=== PATIENT | female | born 1965 | race Caucasian/White ===

== ENCOUNTER 2018-11-07 21:12 | Observation (INO) | payer MEDICAID, OTHER ==
[~2018-11-07] VITALS: Ht 167.6 cm; Wt 112.2 kg
[~2018-11-07 21:12] MED LIST: ASPI-831 PO; LISI-523 PO
[2018-11-07] MEDS ORDERED: NITROGLYCERIN 2% 1 GM OINT PKT TD STA (21:13)
[2018-11-07] MEDS ORDERED: NITROGLYCERIN (SL) 0.4 MG TAB SL PRN ×2 (21:30→23:00)
[2018-11-07] MEDS ORDERED: ONDANSETRON 4 MG INJ IV PRN ×2 (22:30→23:00)
[2018-11-07] MEDS: ACETAMINOPHEN 325 MG TAB PO PRN (22:35)
[2018-11-07] MEDS ORDERED: morphine 2 MG INJ IV PRN (23:00)
[2018-11-07] MEDS ORDERED: BISACODYL (EC) 5 MG TAB PO PRN (23:00)
[2018-11-07] MEDS ORDERED: ACETAMINOPHEN 325 MG TAB PO PRN (23:00)
[2018-11-07] MEDS ORDERED: DOCUSATE SODIUM 100 MG CAP PO PRN (23:00)
[2018-11-07] MEDS ORDERED: NACL 0.9% 3 ML SYG IV SCH (23:00)
[2018-11-08 01:51] VITALS: Ht 167.6 cm; Wt 112.2 kg
[2018-11-08 02:23] VITALS: BP 128/77; PULSE 62; RESP 16
[2018-11-08 04:00] VITALS: BP 98/57; RESP 14
[2018-11-08] MEDS ORDERED: hydrALAzine 20 MG INJ IV PRN (07:00)
[2018-11-08 07:19] VITALS: BP 132/84; PULSE 63; RESP 16
[2018-11-08] MEDS: ACETAMINOPHEN 325 MG TAB PO PRN (07:47)
[2018-11-08] MEDS: ASPIRIN 81 MG TAB PO SCH (08:10)
[2018-11-08 11:07] VITALS: BP 125/85; PULSE 62; RESP 16
[2018-11-08] MEDS ORDERED: ACET/BUTAL/CAFF TAB PO PRN (15:30)
[2018-11-08 16:00] VITALS: BP 126/76; PULSE 60; RESP 16
[2018-11-08 19:53] VITALS: BP 123/73; PULSE 66; RESP 17
[2018-11-09] VITALS: BP 116/66; PULSE 70; RESP 16
[2018-11-09 02:00] VITALS: BP 130/67; PULSE 60; RESP 16
[2018-11-09 04:00] VITALS: BP 130/67; PULSE 60; RESP 18
[2018-11-09 07:17] VITALS: BP 127/89; PULSE 64; RESP 20
[2018-11-09] MEDS: ASPIRIN 81 MG TAB PO SCH (08:11)
[2018-11-09 15:09] VITALS: BP 160/95; PULSE 71; RESP 20
== END 2018-11-09 18:30 | disposition home or self-care (01) ==
LOC: E/R 21:12 → EDSEX 21:12 → 6WM 22:11
PROVIDERS: ADMIT Family Medicine; ATTEND Family Medicine
DX: R07.9 Chest pain, unspecified (principal); I10 Essential (primary) hypertension; E66.01 Morbid (severe) obesity due to excess calories; Z68.41 Body mass index [BMI] 40.0-44.9, adult
CPT/HCPCS: 36415; 71045; 80048; 80053; 80061; 81001; 82550; 82553; 83036; 83735; 84100; 84439; 84443; 84481; 84484; 85025; 93005; 93306; Z7500; Z7502; Z7610; G0378